=== PATIENT | female | born 1970 | race African-American/Black ===

== ENCOUNTER 2017-05-17 17:58 | Emergency (ER) | payer OTHER ==
[~2017-05-17] VITALS: Ht 160 cm; Wt 77.1 kg
[~2017-05-17 17:58] MED LIST: AUGMENTIN 875-1 EACH PO; IBUPROFEN; LORATADINE10 MG PO; MIRALAX; PANTOPRAZOLE SO40 MG PO; SYMBICORT; TYLENOL; VITAMIN B12-FO1 EACH
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
[2017-05-18 00:30] VITALS: BP 164/76
== END 2017-05-18 00:36 | disposition home or self-care (01) ==
LOC: ER 17:58
DX: M54.2 Cervicalgia (principal); S16.1XXA Strain of muscle, fascia and tendon at neck level, initial encounter; S23.3XXA Sprain of ligaments of thoracic spine, initial encounter; M25.512 Pain in left shoulder; M25.511 Pain in right shoulder; V43.52XA Car driver injured in collision with other type car in traffic accident, initial encounter; Y92.488 Other paved roadways as the place of occurrence of the external cause
CPT/HCPCS: 72040; 72072; 99283

== ENCOUNTER → 2019-05-13 | Day surgery (SDC) | payer OTHER ==
[~2019-05-13] MED LIST changes: +HYOSCYAMINE 0.125 MG TAB ONE; +MELOXICAM7.5 MG PO; +PROPOFOL IV EMULSION 10 MG/ML 50 ML VIAL ONE; +VITAMIN D1000 UNI1 PO
--- NOTE | 2019-05-13 22:30 | Operative Report ---
DATE OF PROCEDURE: 05/13/2019 SURGEON: Kevin Chapa MD PROCEDURE: Colonoscopy with polypectomy note. INDICATION FOR COLONOSCOPY: Colorectal cancer screening. MEDICATIONS: The patient was done under MAC. Please see anesthesiologist's note. PROCEDURE IN DETAIL: With the patient in lateral decubitus position, a flexible fiberoptic Olympus colonoscope was inserted into the rectum with ease and advanced all the way to the cecum. The scope was then withdrawn slowly and mucosa overlying the cecum, ascending, transverse, descending colon grossly was unremarkable. One polyp was hot biopsied from the sigmoid colon and the rectum grossly appeared to be within normal limits. The scope was then retroflexed into the distal rectum and small internal hemorrhoids were noted, none of which was actively bleeding. The scope was then straightened out. It was subsequently withdrawn. Visualization overall was suboptimal as the patient desaturated during the procedure due to her severe obstructive sleep apnea and scope had to be quickly withdrawn. IMPRESSION: 1. Suboptimal visualization of colon as the patient did desaturated during the procedure secondary to her severe obstructive sleep apnea, whereby scope had to be quickly withdrawn. 2. Sigmoid colon polyp, hot biopsied. 3. Internal hemorrhoids, none actively bleeding. PLAN: Follow up histology. Initiate high-fiber, low-fat diet. Initiate high-fiber supplement. The patient might benefit from a followup colonoscopy in the 2 to 3 years. Kevin Chapa MD [facility] /[id number] cc: Caryn Tolbert MD
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
== END | disposition home or self-care (01) ==
LOC: OR 11:05
PROVIDERS: ATTEND Internal Medicine Gastroenterology
DX: Z12.11 Encounter for screening for malignant neoplasm of colon (principal); K63.5 Polyp of colon; K64.8 Other hemorrhoids; K21.9 Gastro-esophageal reflux disease without esophagitis; G47.33 Obstructive sleep apnea (adult) (pediatric); E66.01 Morbid (severe) obesity due to excess calories; Z01.810 Encounter for preprocedural cardiovascular examination; Z68.43 Body mass index [BMI] 50.0-59.9, adult
CPT/HCPCS: 45384; 81025; 93005

== ENCOUNTER → 2020-03-25 | Outpatient (CLI) | payer OTHER ==
[~2020-03-25] MED LIST changes: -HYOSCYAMINE 0.125 MG TAB ONE; -PROPOFOL IV EMULSION 10 MG/ML 50 ML VIAL ONE
--- NOTE | 2020-03-25 14:00 | Diagnostic Imaging Report ---
Exam: CHEST 2 VIEWS Date: 03/25/2020 1:56 PM INDICATION: ^[id number] ^1330 ^RIGHT CHEST PAIN Comparison: Thoracic spine x-ray dated 05/17/2017 FINDINGS: Lines/Tubes:None Lungs:The lungs are well inflated. No focal consolidation or pulmonary edema. Pleura:No pleural effusion. No pneumothorax. Heart/Mediastinum:The cardiomediastinal silhouette is normal in size and contour. Bones/Soft Tissues: No acute osseous abnormality. Upper abdomen: Unremarkable. IMPRESSION: Negative for acute intrathoracic process. Signed by: Herman Devries MD on 03/25/2020 1:56 PM
== END ==
LOC: RAD 13:07
PROVIDERS: ATTEND Internal Medicine
DX: R07.9 Chest pain, unspecified (principal)
CPT/HCPCS: 71046

== ENCOUNTER → 2020-04-01 | Outpatient (CLI) | payer OTHER ==
--- NOTE | 2020-04-01 13:44 | Diagnostic Imaging Report ---
Radiographs of the right elbow HISTORY: Pain COMPARISON: None available. FINDINGS: Bones: No acute displaced fracture. Osseous alignment is within normal limits. Joints: Scattered degenerative change. No osseous erosion. Soft tissues: Soft tissue swelling IMPRESSION: Scattered degenerative change. No osseous erosion. Soft tissue swelling. Signed by: Dr. Reyes Hernandez M.D. on 04/01/2020 1:41 PM
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
== END ==
LOC: US 12:34
PROVIDERS: ATTEND Internal Medicine
DX: M25.521 Pain in right elbow (principal); M54.5 Low back pain
CPT/HCPCS: 76770

== ENCOUNTER 2020-06-07 10:12 | Emergency (ER) | payer OTHER ==
[~2020-06-07] VITALS: Ht 160 cm; Wt 77.1 kg
[2020-06-07] MEDS ORDERED: HYDROCODONE/APAP 10MG-325MG TAB PO ONE (10:45)
[2020-06-07] MEDS ORDERED: KETOROLAC TROMETHAMINE 60 MG/2 ML VIAL IM ONE (10:45)
[2020-06-07] MEDS ORDERED: DIAZEPAM 5 MG TAB PO ONE (11:00)
[2020-06-07] MEDS ORDERED: METHOCARBAMOL750 MG PO ×2 (12:25→12:33)
[2020-06-07] MEDS ORDERED: DIAZEPAM5 MG PO (12:33)
== END 2020-06-07 12:36 | disposition home or self-care (01) ==
LOC: ER 10:23
DX: M54.5 Low back pain (principal); M54.2 Cervicalgia; V43.52XA Car driver injured in collision with other type car in traffic accident, initial encounter; Y92.410 Unspecified street and highway as the place of occurrence of the external cause
CPT/HCPCS: 72125; 72131; 72192; 99283; J1885